=== PATIENT | male | born 1930 | race Caucasian/White ===

== ENCOUNTER → 2016-08-03 | Outpatient (CLI) | payer MEDICARE, BC ==
[~2016-08-03] MED LIST: AMITRIPTYLINE10 MG PO; ARICEPT10 MG PO; ARICEPT5 MG PO; ASPIRIN 32325 MG/TAB PO; CLOPIDOGREL PO; CRESTOR; CRESTOR10 MG PO; DIOVAN HCT 12.51 TAB PO; DIOVAN160 MG PO; ELAVIL10 MG PO; IMDUR60 MG PO; INDERAL 10MG10 MG PO; LIPITOR80 MG PO; LISINOPRIL2.5 MG PO; NAMENDA 10MG TA10 MG PO; NAMENDA10 MG PO; NIACIN 250250 MG/CAP PO; NIACIN1000 MG PO; NIASPAN500 MG PO; NITROQUICK0.4 MG SL; PLAVIX 75MG TAB75 MG PO; SPIRIVA18 MCG IH; TEMAZEPAM15 MG PO; TOPROL XL 25MG25 MG PO; TOPROL XL25 MG PO; ZETIA10 MG PO; detrol PO; spiriva IH
[2016-08-03 16:44] LABS: BASO # 0.1 (0.0-0.2); BASO % 0.8 % (0.0-2.0); EOS # 0.2 (0.0-0.7); EOS % 1.8 % (0-4.0); GRAN # 6.7 (1.4-6.5); HEMATOCRIT 40.5 % (42.0-52.0); HEMOGLOBIN 12.9 g/dl (13.5-18.0); LYMPH % 11.4 % (20.0-51.0); MEAN CELL VOLUME 96 fl (80.0-100.0); MEAN CORPUSCULAR HEMOGLOBIN 30 pg (27.0-31.0); MEAN CORPUSCULAR HGB CONC 32 g/dl (33.0-37.0); MEAN PLATELET VOLUME 11.2 fl (7.4-10.4); MONO # 1.1 (0.1-0.6); MONO % 11.8 % (1.7-9.3); PLATELET COUNT 214 K/mm3 (130-400); RED BLOOD COUNT 4.24 M/mm3 (4.20-5.60); REDCELL DISTRIBUTION WIDTH-CV 13.8 % (11.5-14.5)
[2016-08-03 16:51] LABS: ADJUSTED CALCIUM 9.7 mg/dL (8.4-10.2); ALBUMIN 3.5 gm/dL (3.5-5.0); BILIRUBIN,TOTAL 0.9 mg/dL (0.0-1.0); CALCIUM 9.3 mg/dL (8.4-10.2); CREATININE, serum 0.95 mg/dL (0.66-1.25); POTASSIUM 4.4 mmol/L (3.4-5.0); TOTAL PROTEIN 6.3 gm/dL (6.4-8.2)
[2016-08-03 17:21] LABS: THYROID STIMULATING HORMONE 1.96 uIU/mL (0.465-4.680)
== END ==
LOC: ZCOL.LAB 16:03
PROVIDERS: Nurse Practitioner Family
DX: R05 Cough (principal); R06.02 Shortness of breath; R53.82 Chronic fatigue, unspecified; R63.5 Abnormal weight gain

== ENCOUNTER 2017-03-12 22:51 | Emergency (ER) | payer MEDICARE, BC ==
[~2017-03-12] VITALS: Ht 177.8 cm; Wt 61.4 kg
[~2017-03-12 22:51] MED LIST changes: +LIPITOR 40MG TA40 MG PO; -NAMENDA10 MG PO
[2017-03-12 22:53] VITALS: TEMP 99.6
[2017-03-12] MEDS ORDERED: LEXAPRO 10MG10 MG PO (22:58)
[2017-03-12] MEDS ORDERED: ASPIRIN 32325 MG/TAB PO (22:59)
[2017-03-12] MEDS ORDERED: ZANTAC 150MG T150 MG PO (23:00)
[2017-03-12 23:13] LABS: HEMATOCRIT 42.9 % (42.0-52.0); HEMOGLOBIN 14.2 g/dl (13.5-18.0); MEAN CELL VOLUME 94 fl (80.0-100.0); MEAN CORPUSCULAR HEMOGLOBIN 31 pg (27.0-31.0); MEAN CORPUSCULAR HGB CONC 33 g/dl (33.0-37.0); MEAN PLATELET VOLUME 10.7 fl (7.4-10.4); PLATELET COUNT 262 K/mm3 (130-400); RED BLOOD COUNT 4.57 M/mm3 (4.20-5.60); REDCELL DISTRIBUTION WIDTH-CV 14.2 % (11.5-14.5); WHITE BLOOD COUNT 12.1 K/mm3 (4.8-10.8)
[2017-03-12 23:15] LABS: ADD PATHOLOGY DIFF REVIEW NO
[2017-03-12 23:18] LABS: ADJUSTED CALCIUM 9.4 mg/dL (8.4-10.2); ALBUMIN 3.7 gm/dL (3.5-5.0); CALCIUM 9.2 mg/dL (8.4-10.2); CREATININE, serum 0.96 mg/dL (0.66-1.25); POTASSIUM 4.2 mmol/L (3.4-5.0); TOTAL PROTEIN 7.2 gm/dL (6.4-8.2)
[2017-03-12 23:29] LABS: TROPONIN-I 0.015 ng/mL (0.000-0.034)
[2017-03-12 23:31] LABS: PH 5 (5-8); SQUAMOUS EPITHELIAL None Seen /hpf; URINE APPEARANCE Clear; URINE BACTERIA None Seen /hpf; URINE BILIRUBIN Negative (NEGATIVE); URINE BLOOD 1+ (NEGATIVE); URINE COLOR Yellow; URINE GLUCOSE Negative (NEGATIVE); URINE KETONE Trace (NEGATIVE); URINE UROBILINOGEN >=4.0 mg/dL (NEGATIVE); URINE WBC 0-2 /hpf
[2017-03-12 23:45] LABS: BAND 16 % (0-10); NEUTROPHILS 64 % (42.0-75.2); TOTAL CELLS COUNTED 100
[2017-03-13 02:26] VITALS: BP 162/89; PULSE 98
== END 2017-03-13 03:00 | disposition short-term general hospital (02) ==
LOC: COL.ER 22:51
PROVIDERS: Emergency Medicine
DX: R10.33 Periumbilical pain (principal); I25.10 Atherosclerotic heart disease of native coronary artery without angina pectoris; E78.5 Hyperlipidemia, unspecified; I10 Essential (primary) hypertension; F03.90 Unspecified dementia, unspecified severity, without behavioral disturbance, psychotic disturbance, mood disturbance, and anxiety; Z95.1 Presence of aortocoronary bypass graft; Z90.89 Acquired absence of other organs; Z79.02 Long term (current) use of antithrombotics/antiplatelets; Z79.82 Long term (current) use of aspirin
CPT/HCPCS: J1335; J2060; J3010; J7030; J7050; Q9967

== ENCOUNTER 2018-02-26 19:21 | Inpatient (IN) | payer MEDICARE, BC ==
[~2018-02-26] VITALS: Ht 170.2 cm; Wt 63.9 kg
[~2018-02-26 19:21] MED LIST changes: +LEXAPRO 10MG10 MG PO; +ZANTAC 150MG T150 MG PO
[2018-02-26 19:49] LABS: BASO % 0.5 % (0.0-2.0); EOS # 0.1 (0.0-0.7); EOS % 1.5 % (0-4.0); GRAN # 3.9 (1.4-6.5); GRAN % 64.3 % (42.2-75.2); HEMATOCRIT 42.2 % (42.0-52.0); HEMOGLOBIN 13.8 g/dl (13.5-18.0); LYMPH # 1.4 (1.2-3.4); LYMPH % 22.4 % (20.0-51.0); MEAN CELL VOLUME 93 fl (80.0-100.0); MEAN CORPUSCULAR HEMOGLOBIN 30 pg (27.0-31.0); MEAN CORPUSCULAR HGB CONC 33 g/dl (33.0-37.0); MEAN PLATELET VOLUME 10.4 fl (7.4-10.4); MONO # 0.7 (0.1-0.6); MONO % 10.8 % (1.7-9.3); PLATELET COUNT 210 K/mm3 (130-400); RED BLOOD COUNT 4.56 M/mm3 (4.20-5.60); REDCELL DISTRIBUTION WIDTH-CV 14.4 % (11.5-14.5)
[2018-02-26 19:53] LABS: ARTERIAL BLOOD GAS BASE EXCESS -0.7 (-2-2); ARTERIAL BLOOD GAS HCO3 24.1 meq/L (22-26); ARTERIAL BLOOD GAS PO2 57.1 mmHg (80-100)
[2018-02-26] MEDS ORDERED: ARICEPT10 MG PO (19:59)
[2018-02-26] MEDS ORDERED: PRINIVIL10 MG PO (20:00)
[2018-02-26] MEDS ORDERED: TOPROL XL 25MG25 MG (20:01)
[2018-02-26] MEDS ORDERED: LUTEIN20 M1 PO (20:03)
[2018-02-26 20:05] LABS: ALANINE AMINOTRANSFERASE 29 U/L (21-72); ALBUMIN 3.9 gm/dL (3.5-5.0); ALKALINE PHOSPHATASE 68 U/L (50-136); ANION GAP 9 mmol/L (7-16); AST,SGOT 31 U/L (15-37); BILIRUBIN,TOTAL 0.6 mg/dL (0.0-1.0); BLOOD UREA NITROGEN 16 mg/dL (9-20); CALCIUM 8.8 mg/dL (8.4-10.2); CARBON DIOXIDE 26 mmol/L (22-30); CHLORIDE 95 mmol/L (98-107); CREATININE, serum 0.91 mg/dL (0.66-1.25); GLUCOSE 135 mg/dL (74-106); POTASSIUM 4.2 mmol/L (3.4-5.0); SODIUM 131 mmol/L (137-145); TOTAL PROTEIN 6.9 gm/dL (6.4-8.2)
[2018-02-26 20:06] LABS: C-REACTIVE PROTEIN 0.5 mg/dL (0.0-0.9)
[2018-02-26 20:13] LABS: TROPONIN-I < 0.012 ng/mL (0.000-0.034)
[2018-02-26 21:17] LABS: COLLECTION METHOD CLEAN CATCH
[2018-02-26 21:22] LABS: MUCOUS Present /lpf; PH 6 (5-8); SQUAMOUS EPITHELIAL None Seen /hpf; URINE APPEARANCE Clear; URINE BACTERIA None Seen /hpf; URINE BILIRUBIN Negative (NEGATIVE); URINE BLOOD Negative (NEGATIVE); URINE COLOR Yellow; URINE GLUCOSE Negative (NEGATIVE); URINE KETONE Negative (NEGATIVE); URINE LEUKOCYTE ESTERASE Negative (NEGATIVE); URINE NITRATE Negative (NEGATIVE); URINE PROTEIN(semi-quant) 1+ (NEGATIVE); URINE RBC 0-2 /hpf; URINE UROBILINOGEN Negative (NEGATIVE)
[2018-02-27] VITALS (723 sets, daily range): BP systolic 126–171; BP diastolic 54–122; PULSE 89–104; TEMP 97.8–98.9; O2SAT 84–100
[2018-02-27] MEDS ORDERED: ASPIRIN 81M81 MG/TA2 PO (01:07)
[2018-02-27 02:49] LABS: ARTERIAL BLD GAS O2 SATURATION 91.8 % (92-100); ARTERIAL BLOOD GAS BASE EXCESS -3.3 (-2-2); ARTERIAL BLOOD GAS HCO3 20.9 meq/L (22-26); ARTERIAL BLOOD GAS PCO2 35.3 mmHg (35-45); ARTERIAL BLOOD GAS PO2 63.8 mmHg (80-100); ARTERIAL BLOOD GAS pH 7.39 (7.35-7.45)
[2018-02-27 06:06] LABS: ARTERIAL BLD GAS O2 SATURATION 94.3 % (92-100); ARTERIAL BLD GAS TCO2 CT 19.4; ARTERIAL BLOOD GAS BASE EXCESS -6.4 (-2-2); ARTERIAL BLOOD GAS HCO3 18.3 meq/L (22-26); ARTERIAL BLOOD GAS PCO2 34.6 mmHg (35-45); ARTERIAL BLOOD GAS PO2 74.9 mmHg (80-100); ARTERIAL BLOOD GAS pH 7.34 (7.35-7.45)
[2018-02-28] VITALS (943 sets, daily range): BP systolic 117–133; BP diastolic 50–85; PULSE 63–87; TEMP 98.2–98.4; O2SAT 93–100
[2018-02-28 05:19] LABS: ARTERIAL BLD GAS O2 SATURATION 91.6 % (92-100); ARTERIAL BLD GAS TCO2 CT 21.6; ARTERIAL BLOOD GAS HCO3 20.5 meq/L (22-26); ARTERIAL BLOOD GAS PCO2 35.7 mmHg (35-45); ARTERIAL BLOOD GAS PO2 62.4 mmHg (80-100); ARTERIAL BLOOD GAS pH 7.38 (7.35-7.45)
[2018-03-01] VITALS (773 sets, daily range): BP systolic 131–165; BP diastolic 68–91; PULSE 75–91; TEMP 97.1; O2SAT 49–100
[2018-03-02] VITALS (441 sets, daily range): O2SAT 66–83
[2018-03-02] MEDS ORDERED: MORP4 IV (12:17)
[2018-03-02] MEDS ORDERED: ATIVAN 2MG/ML2 MG/ML IV (12:17)
[2018-03-02] MEDS ORDERED: TRANSDERM-0.5 MG/21 TD (12:18)
[2018-03-02] MEDS ORDERED: ATIVAN 0.50.5 MG/TAB PO (13:29)
[2018-03-02] MEDS ORDERED: ROXANOL 20MG20 MG/ML PO (13:29)
== END 2018-03-02 14:10 | disposition hospice, inpatient (51) | DRG 535 ==
LOC: COL.ER 19:21 → ICU 22:05
PROVIDERS: Emergency Medicine; Internal Medicine Pulmonary Disease; Nurse Practitioner
DX: S72.011A Unspecified intracapsular fracture of right femur, initial encounter for closed fracture (principal); J96.01 Acute respiratory failure with hypoxia; E87.2 Acidosis; F02.81 Dementia in other diseases classified elsewhere, unspecified severity, with behavioral disturbance; F05 Delirium due to known physiological condition; I35.0 Nonrheumatic aortic (valve) stenosis; Z66 Do not resuscitate; Z51.5 Encounter for palliative care; Z23 Encounter for immunization; I10 Essential (primary) hypertension; I25.10 Atherosclerotic heart disease of native coronary artery without angina pectoris; G30.9 Alzheimer's disease, unspecified; F02.80 Dementia in other diseases classified elsewhere, unspecified severity, without behavioral disturbance, psychotic disturbance, mood disturbance, and anxiety; Z95.1 Presence of aortocoronary bypass graft; E78.1 Pure hyperglyceridemia; Z95.5 Presence of coronary angioplasty implant and graft; Z87.891 Personal history of nicotine dependence; W18.30XA Fall on same level, unspecified, initial encounter; I48.91 Unspecified atrial fibrillation; I27.22 Pulmonary hypertension due to left heart disease
CPT/HCPCS: 99223-AI; 99231-AI; 99233-AI; 99239; A4314; J0456; J0692; J0696; J1940; J1956; J2060; J2270; J2930; J3010; J3370; J7030; J7050; J7512; Q9967